=== PATIENT | male | born 1960 | race Caucasian/White ===

== ENCOUNTER 2017-03-26 19:12 | Emergency (ER) | payer BC ==
[2017-03-26] MEDS ORDERED: Ketorolac 30 MG/ML SDV IM ONE (19:32)
--- NOTE | 2017-03-26 19:37 | EDM.PDOC ---
ED HPI GENERAL MEDICAL PROBLEM - General Chief Complaint: General Stated Complaint: ACHY IN [place], [id number] Time Seen by Provider: 03/26/17 19:33 Source of Information: Reports: Patient History Limitations: Reports: No Limitations - History of Present Illness INITIAL COMMENTS - FREE TEXT/NARRATIVE: onset Sx yesterday, took alleve and got better but not 100%. really concerned re ; Lyme dz. denies F/C. h/o gout but doesn't feel like it. - Related Data Allergies Allergy/AdvReac Type Severity Reaction Status Date / Time No Known Allergies Allergy Verified 09/03/14 06:23 Home Meds: Home Meds Allopurinol [Allopurinol] 300 mg PO DAILY 08/31/14 [History] Aspirin [Halfprin] 81 mg PO DAILY 08/31/14 [History] Hydrochlorothiazide [Hydrochlorothiazide] 25 mg PO DAILY 08/31/14 [History] Lisinopril [Prinivil] 20 mg PO BID 08/31/14 [History] Metoprolol Succinate [Toprol XL 50mg] 50 mg PO DAILY 08/31/14 [History] atorvaSTATin Calcium [Atorvastatin Calcium] 40 mg PO BEDTIME 08/31/14 [History] metFORMIN [Glucophage] 500 mg PO BID 08/31/14 [History] Social & Family History - Tobacco Use Smoking Status *Q: Never Smoker Second Hand Smoke Exposure: Yes - Alcohol Use Days Per Week of Alcohol Use: 0 - Recreational Drug Use Recreational Drug Use: No Drug Use in Last 12 Months: No ED ROS GENERAL - Review of Systems Review Of Systems: ROS reveals no pertinent complaints other than HPI. ED EXAM, GENERAL - Physical Exam Exam: See Below Exam Limited By: No Limitations General Appearance: Alert, WD/WN, Mild Distress, Other (worried) Ears: Hearing Grossly Normal Nose: Normal Inspection Throat/Mouth: Normal Voice, No Airway Compromise Head: Atraumatic Neck: Non-Tender, Full Range of Motion Respiratory/Chest: No Respiratory Distress Cardiovascular: Regular Rate, Rhythm GI/Abdominal: Soft, Non-Tender Extremities: Other (no definitive erythematous inflammatory appearance noted) Neurological: Alert, Oriented, Normal Cognition, Normal Gait, No Motor/Sensory Deficits Psychiatric: Anxious Skin Exam: Warm, Dry Lymphatic: No Adenopathy Course - Vital Signs Last Recorded V/S: Last Vital Signs Temp 36.9 C 03/26/17 19:20 Pulse 76 03/26/17 19:20 Resp 18 03/26/17 19:20 BP 131/62 03/26/17 19:20 Pulse Ox 98 03/26/17 19:20 - Orders/Labs/Meds Orders: Active Orders 24 hr Category Date Time Status [email or web address] IGG/IGM [REF] Stat Lab 03/26/17 19:40 Received Amoxicillin [Amoxil] Med 03/26/17 20:19 Once 500 mg PO ONETIME ONE Meds: Medications Discontinued Medications Generic Name Dose Route Start Last Admin Trade Name David PRN Reason Stop Dose Admin Ketorolac Tromethamine 30 mg 03/26/17 19:32 03/26/17 19:51 Toradol IM 03/26/17 19:33 30 mg ONETIME ONE Administration - Re-Assessments/Exams Free Text/Narrative Re-Assessment/Exam: 03/26/17 20:21 s/p IM toradol = much better pain ess gone. states more concern with Lyme. Departure - Departure Time of Disposition: 20:21 Disposition: Home, Self-Care 01 Condition: Good Clinical Impression: Polyarthralgia - Discharge Information Instructions: Lyme Disease Forms: ED Department Discharge Additional Instructions: 1) continue alleve for pain 2) call family doctor next week for results 3) recheck if there is any change or concern rx given; amoxil 250mg tid x 30 - My Orders Last 24 Hours: My Active Orders 03/26/17 19:40 [email or web address] IGG/IGM [REF] Stat 03/26/17 20:19 Amoxicillin [Amoxil] 500 mg PO ONETIME ONE - Assessment/Plan Last 24 Hours: My Active Orders 03/26/17 19:40 [email or web address]/B.[email or web address] IGG/IGM [REF] Stat 03/26/17 20:19 Amoxicillin [Amoxil] 500 mg PO ONETIME ONE
[2017-03-26] MEDS ORDERED: Amoxicillin 500 MG Cap PO ONE (20:19)
[2017-03-26 21:07] VITALS: BP 128/62
== END 2017-03-26 20:45 | disposition home or self-care (01) ==
LOC: DL.ED 19:12
DX: M25.50 Pain in unspecified joint (principal); Z79.82 Long term (current) use of aspirin; Z79.899 Other long term (current) drug therapy; Z79.84 Long term (current) use of oral hypoglycemic drugs
CPT/HCPCS: 86618; 96372; 99283; A9270; J1885; 36415